=== PATIENT | female | born 1945 | race Caucasian/White ===

== ENCOUNTER → 2016-03-04 | Outpatient (CLI) | payer MEDICARE ==
[~2016-03-04] MED LIST: GASTROGRAFIN SOLUTION 30ML (Q9963) As Ordered ONE; ISOVUE-370 76% 100ML VIAL (Q9967) As Ordered ONE
--- NOTE | 2016-03-04 12:36 | REP ---
Clinical: Breast cancer. Follow-up. Technique: Axial contrast enhanced images from the lung bases to the mid iliac level using oral and 100 ml Isovue 370 intravenous contrast material with precontrast and delayed images as well as coronal and sagittal re-formations. Comparison: 01/09/2012. Findings: Lung bases demonstrate a 2.5 cm metastatic focus in the right lower lobe and 2.8 cm metastatic focus in the left lower lobe. Liver, spleen, pancreas, gallbladder, bilateral adrenal glands and right kidney are normal. Left kidney demonstrates 6.1 cm simple mid to lower pole cyst which is increased in size compared to prior examination when measuring 5.5 cm maximal diameter. Visualized portions of the small and large bowel as well as the stomach appear relatively normal and without obstruction or acute inflammatory process. Small hiatal hernia identified at the gastroesophageal junction similar to prior examination. No ascites in the visualized abdomen. No obvious adenopathy appreciated. Osseous structures demonstrate changes suggesting degenerative disease but subtle metastatic foci cannot be excluded. Impression: 1. Two large lesions in the lung bases measuring 2.5 cm and 2.8 cm suggesting metastatic disease. 2. A 6.1 cm simple appearing left renal cyst increased from prior examination. 3. Stable hiatal hernia. 4. Presumed degenerative changes of the visualized osseous structures although osseous metastatic foci cannot be excluded. Signed by Jacky Gan MD 03/04/2016 12:28 P
--- NOTE | 2016-03-04 12:45 | REP ---
Clinical: Breast cancer for follow up. Technique: Axial contrast enhanced images from the thoracic inlet to the upper abdomen using 100 ml Isovue 370 intravenous contrast material with coronal and sagittal re-formations. Comparison: 01/09/2012. Findings: A left apical lesion is identified measuring 1.1 cm maximal diameter. Left upper lobe anterior lesion measures 1.8 cm maximal diameter. Medial left lower lobe lesion measures 2.8 cm maximal diameter. Posterior right lower lobe lesion measures 2.5 cm maximal diameter. Mediastinal lymph nodes measure 14 mm short-axis diameter in the pretracheal space and 13 mm short-axis diameter in the right hilum as well as few smaller scattered lymph nodes. No pleural effusion or pneumothorax. Tracheobronchial tree is patent. Thoracic aorta and heart/pericardium remain relatively stable with atherosclerotic changes noted and pacemaker identified. No pericardial effusion. Osseous structures demonstrate degenerative type changes without definite metastatic osseous foci are identified. Impression: Four pulmonary lesions measuring up to 2.8 cm maximal diameter as described above consistent with metastatic disease. A few other scattered noncalcified pulmonary are also identified and remain similar to 2012. Associated adenopathy as described above. Signed by Jacky Gan MD 03/04/2016 12:37 P
--- NOTE | 2016-03-04 13:53 | REP ---
Whole body radionuclide bone scan: History: Malignant neoplasm of the breast. No comparison bone scans available. Comparison is made with CT abdomen and pelvis from March 04, 2016. There is a left hip replacement noted on today's technical support intern images of the abdomen and pelvis. Scintigraphic technique: 22.0 mCi technetium 99m MDP is injected and standard whole body bone scan imaging is acquired. Scintigraphic findings: There is uptake in bilateral kidneys and in the urinary bladder. There is arthritic uptake noted bilaterally in the shoulders. Degenerative uptake pattern is seen at the L4-5 disc space and to a lesser extent in the lower thoracic spine and in the cervical spine. There is increased uptake at what appears to be the distal end of the photopenic left hip proximal femur prosthesis. Increased uptake is seen in the mid diaphysis of the left femur in a linear pattern. This is most likely related to the orthopedic appliance and/or stress phenomenon. There is mild arthritic uptake in the lateral compartment of the left knee. There is no evidence suggestive of skeletal metastatic disease. Impression: Osteoarthritic and degenerative disc disease uptake. Uptake related to the left hip prosthesis and likely stress phenomenon in the left femoral diaphysis. This could be correlated with radiographic findings. No compelling evidence of skeletal metastatic disease. Signed by Ramone Feldman MD 03/04/2016 03:32 P
== END ==
LOC: M RAD 09:47
PROVIDERS: ATTEND Internal Medicine Hematology & Oncology
DX: C50.911 Malignant neoplasm of unspecified site of right female breast (principal); R91.8 Other nonspecific abnormal finding of lung field; K44.9 Diaphragmatic hernia without obstruction or gangrene; N28.1 Cyst of kidney, acquired
CPT/HCPCS: 71260; 74170; 78306; A9503; Q9963; Q9967

== ENCOUNTER → 2016-09-12 | Outpatient (CLI) | payer MEDICARE ==
--- NOTE | 2016-09-12 14:07 | REP ---
CT of the chest with IV contrast: Comparison is 2016. The the patient has the following lung nodules: The cysts. There are minute Left upper lobe, image 21, 13 mm (previously 11 mm). Left upper lobe, image 39, 20 mm (previously 18 mm). Right lower lobe, image 61, 27 mm (previously 25 mm). The the patient has the following lymphadenopathy: Mediastinal azygos node, image 34, 13 mm (previously 13 mm). Right hilus, image 49, 14 mm (previously 12 mm). There are no new lung nodules or masses. There are no new enlarged lymph nodes. There is a right mastectomy as previously. There are no acute infiltrates. There are no pleural effusions. The thoracic aorta is unremarkable. Cardiac size is normal. There is no pericardial effusion. Impression: Lung nodules and adenopathy as described. There are no new lung nodules and there is no new adenopathy. Signed by Mihir Johansen MD 09/12/2016 01:58 P
--- NOTE | 2016-09-12 14:23 | REP ---
CT of the abdomen pelvis without and with IV and oral contrast: Comparisons 03/04/2016. Within the visualized lung manzano. There is a 31 mm mass medially in the left lower lobe on image 72. This measured 28 mm previously. There is 820 7 mm mass in the right lower lobe on image 61. This measured 24 mm previously. The hepatic parenchyma is homogeneous on all phases of the study. No hepatic metastases are identified. The gallbladder, pancreas and spleen are unremarkable and unchanged. The adrenals, kidneys, abdominal aorta are unremarkable except for a 6.6 cm cyst at the lower pole left kidney. This measured 6.1 cm previously. There is no retroperitoneal or mesenteric adenopathy. The bowel is unremarkable except for diverticulosis of the descending colon and sigmoid colon. This is unchanged. There is a right hip arthroplasty resulting in beam hardening artifact obscuring visualization of the pelvis. The bladder is grossly unremarkable. No pelvic adenopathy or ascites is identified. Impression: Lung lesions as described. Left renal cyst. Small hiatal hernia. No adenopathy or ascites. No evidence of metastatic disease. Signed by Mihir Johansen MD 09/12/2016 02:15 P
== END ==
LOC: M RAD 11:17
PROVIDERS: ATTEND Internal Medicine Hematology & Oncology
DX: C50.412 Malignant neoplasm of upper-outer quadrant of left female breast (principal); K44.9 Diaphragmatic hernia without obstruction or gangrene; N28.1 Cyst of kidney, acquired
CPT/HCPCS: 71260; 74178; Q9963; Q9967

== ENCOUNTER → 2017-01-09 | Outpatient (CLI) | payer MEDICARE ==
--- NOTE | 2017-01-09 14:42 | REP ---
Clinical: Metastatic breast cancer. Technique: Axial contrast enhanced images from the lung bases to the pubic symphysis using oral and 100 ml Isovue 370 intravenous contrast material with precontrast and delayed images of the abdomen as well as coronal and sagittal re-formations. Comparison: 09/12/2016. Findings: Lung bases demonstrate new mass lesions in the visualized right middle lobe measuring up to 2.7 cm diameter as well as new scattered small lesions in the bilateral lung bases measuring up to 1.4 cm along the medial right sulcus. Previously noted large lesion in the right lower lobe currently measures 4.5 cm maximal transverse diameter and previously measured 3.5 cm maximal transverse diameter. No new lesion in the medial left lower lobe currently measures 3.2 cm maximal diameter and previously measured 2.7 cm maximal diameter. Visualized portions of the heart and pericardium suggest small increased pericardial effusion. Small hiatal hernia at the gastroesophageal junction noted. 2 cm low density lesion in the right hepatic lobe concerning for early metastatic focus. Spleen, pancreas, gallbladder, bilateral adrenal glands and kidneys are normal / stable. 6 cm left renal cyst is again identified. The enteric system is without obstruction or acute inflammatory process. Colonic and sigmoid diverticulosis noted without acute diverticulitis. Pelvis demonstrates normal bladder and heterogeneous prominent uterus with partially calcified myomatous changes. No ascites. No significant adenopathy. Atherosclerotic changes of the vasculature noted without aneurysm. Musculoskeletal structures demonstrate degenerative changes without definite osseous metastatic foci. Impression: 1. Increasing pulmonary metastatic disease. 2. 2 cm low density lesion within the right hepatic lobe concerning for early metastatic focus. 3. Stable 6 cm left renal cyst. 4. Diverticulosis without acute diverticulitis. 5. No ascites, abdominopelvic adenopathy or definite osseous metastatic disease. Signed by Jacky Gan MD 01/09/2017 02:33 P
--- NOTE | 2017-01-09 14:49 | REP ---
Clinical: Metastatic breast cancer. Technique: Axial contrast enhanced images from the thoracic inlet to the upper abdomen using 100 ml Isovue 370 intravenous contrast material with coronal and sagittal re-formations. Comparison: 09/12/2016. Findings: Diffuse bilateral metastatic lesions having creased in both quantity and size. As example, a left apical lesion previously measuring 12 mm currently measures 15 mm, left upper lobe lesion previously measuring 2.0 cm currently measures 2.2 cm, right lower lobe lesion previously measuring 2.7 cm currently measures 3.5 cm, and medial left lower lobe lesion previously measuring 3.1 cm currently measures 3.4 cm. No pleural effusion. Mediastinal and hilar adenopathy has also increased. As example, left hilar lymph node measures 3.5 x 1.5 cm previously measuring 1.7 x 0.8 cm. A small pericardial effusion is also now identified. Thoracic aorta and pulmonary vasculature appears relatively normal. Evidence for prior right mastectomy. Osseous structures demonstrate age-related degenerative changes without definitive osseous metastatic foci. Limited evaluation of the upper abdomen demonstrates subtle 3 cm hypodensity in the right lobe of the liver concerning for hepatic metastatic disease. Impression: 1. Increased metastatic changes including increase quantity and size to scattered pulmonary nodules and mass lesions, increased adenopathy, and small pericardial effusion. 2. 3 cm hypodensity in the right lobe of the liver concerning for early hepatic metastatic disease. Signed by Jacky Gan MD 01/09/2017 02:40 P
--- NOTE | 2017-01-10 11:53 | REP ---
UNILATERAL MAMMOGRAM, LEFT BREAST: Unilateral mammogram left breast is performed in the MLO and CC projections and compared to prior study 12/10/2015 as well as other prior exams. The patient has a history of right breast cancer and mastectomy. Left breast demonstrates predominantly fatty replacement with mild scattered fibroglandular tissue. There is no new mass or clustered microcalcifications. Pacemaker projects in the region of the left axilla on the MLO view. IMPRESSION: BI-RADS/ACR category 1 mammogram. Negative. Routine annual screening mammography (for women over age 40). ACR 1 negative mammogram left breast in this patient status post right mastectomy. Suggest followup mammogram in 1 year. This mammogram was interpreted with the aid of an FDA-approved computer-aided detection system. A. Negative x-ray reports should not delay biopsy if a dominant or clinically suspicious mass is present. B. Four to eight percent of cancers are not identified by x-ray. C. Adenosis and dense breasts may obscure an underlying neoplasm. The patient states she/he had a clinical breast exam in May 2016. The patient letter being requested is M1. Signed by Mihir Echols MD 01/10/2017 04:57 P
== END ==
LOC: M RAD 11:13
PROVIDERS: ATTEND Internal Medicine Hematology & Oncology
DX: Z12.31 Encounter for screening mammogram for malignant neoplasm of breast (principal); Z85.3 Personal history of malignant neoplasm of breast; E65 Localized adiposity; R91.8 Other nonspecific abnormal finding of lung field
CPT/HCPCS: 71260; 74178; G0202; Q9963; Q9967

== ENCOUNTER → 2017-01-18 | Outpatient (CLI) | payer MEDICARE ==
--- NOTE | 2017-01-18 11:53 | REP ---
WHOLE BODY RADIONUCLIDE BONE SCAN: HISTORY: Breast carcinoma. Left anterior rib pain. Status post right mastectomy 1987. Status post recurrence in 2012 treated with chemotherapy. 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 Comparison bone scan is from March 04, 2016. Comparison chest CT study January 09 2017. FINDINGS: There is uptake in bilateral kidneys and in the urinary bladder. Photopenia is seen in the left hip and proximal femur related to the history of surgical treatment here. This is unchanged from the comparison bone scan of March 04, 2016. There is mildly asymmetric increased cortical uptake in the mid and distal femur on the left as well also unchanged and also likely related to the previous surgical therapy and intramedullary pete placement. There is arthritic uptake in the AC joints and in the right manubrial clavicular articulation which is mild. There is a subtle area of slightly increased uptake in the lateral aspect of the right 9th rib. No defect or fracture can be seen on chest CT in the 9th rib on the right from January 09, 2017. This could be an occult fracture or other lesion. There is no other evidence to suggest skeletal metastatic disease. IMPRESSION: Equivocal focus of uptake in the right lateral 9th rib. Question occult fracture versus early lesion. No abnormality to correlate with this on CT. No other suspicious scintigraphic abnormality. Signed by Ramone Feldman MD 01/18/2017 01:08 P
== END ==
LOC: M RAD 08:10
PROVIDERS: ATTEND Internal Medicine Hematology & Oncology
DX: C50.919 Malignant neoplasm of unspecified site of unspecified female breast (principal)
CPT/HCPCS: 78306; A9503

== ENCOUNTER → 2018-01-10 | Outpatient (CLI) | payer MEDICARE | LOC: M RAD 10:29 | DX: Z12.31 Encounter for screening mammogram for malignant neoplasm of breast (principal); Z78.0 Asymptomatic menopausal state; Z85.3 Personal history of malignant neoplasm of breast; Z85.118 Personal history of other malignant neoplasm of bronchus and lung; Z80.3 Family history of malignant neoplasm of breast; Z95.0 Presence of cardiac pacemaker | CPT/HCPCS: 77067 ==

== ENCOUNTER → 2018-10-23 | Outpatient (CLI) | payer MEDICARE ==
[~2018-10-23] MED LIST changes: +ACET1TAB37 PO; +CALTTAB6 PO; +CARV6.25 PO; +ENTR1TAB PO; +FURO20TA2 PO; +GAS-62.5 PO; -GASTROGRAFIN SOLUTION 30ML (Q9963) As Ordered ONE; +HM M250T PO; -ISOVUE-370 76% 100ML VIAL (Q9967) As Ordered ONE; +LYNP100T PO; +NEXI20CA PO; +VITA500064 PO
--- NOTE | 2018-10-23 14:41 | REP ---
PET/CT: HISTORY: Restaging right breast carcinoma. BRCA positive. Status post chemotherapy. COMPARISONS: No comparison PET-CT. Comparison CT study of the chest is from January 09, 2017. No more recent comparison imaging is available at this juncture. TECHNIQUE: 54 minutes following the intravenous injection of a 8.01 mCi dose of F-18 FDG, three-dimensional PET scintigraphy is acquired from the skull base to the proximal thighs. Triplanar noncontrast CT scanning is acquired through the same anatomic range for attenuation correction, and image registration with scan parameters optimized to minimize radiation exposure to the patient. PET scintigraphy and CT datasets were fused and displayed on a workstation with multiplanar and projection display capability. PET/CT FINDINGS: There is a large, 4 cm, area of hypermetabolic abnormal uptake in the dorsal aspect of the mid sacrum with maximum standard uptake value 15.42. There is no corresponding radiolucent bony destructive lesion on accompanying CT. There is another small subcentimeter hypermetabolic focus in the distal sacrum on the left with maximum standard uptake value 4.3. No other skeletal lesion is seen. There is arthritic periarticular uptake in the shoulders bilaterally, left more so than right. There is a 1 cm hypermetabolic lymph node focus to the left of the trachea just below the thoracic inlet in the mediastinum. Maximum standard uptake value 7.29. There is a large, 7.8 cm, parenchymal mass in the left upper lobe with maximum standard uptake value up to 11.89. There is a small right hilar lymph node approximately a centimeter in diameter which is hypermetabolic, 4.67. There is a hypermetabolic nodular focus in the right lower lobe with maximum standard uptake value 4.78. There is a hypermetabolic focus in the left pleural space at the left base posteriorly with maximum standard uptake value 11.4. This measures 3.3 cm in greatest diameter. There is a retrocrural lymph node focus in the left with maximum standard uptake value 5.71. There is a small left pleural effusion. There is a cyst in the lower pole of the left kidney. There is a left-sided pacemaker. IMPRESSION: Findings consistent with skeletal, left upper lobe pulmonary parenchymal, left pleural, left superior mediastinal, right hilar, and left retrocrural lymph node metastatic sites. Electronically Signed by Ramone Feldman MD 10/23/2018 03:30 P
== END ==
LOC: M PLARAD 08:52
PROVIDERS: ATTEND Internal Medicine Hematology & Oncology
DX: C50.811 Malignant neoplasm of overlapping sites of right female breast (principal)
CPT/HCPCS: 78815; A9552